=== PATIENT | male | born 1990 | race Caucasian/White ===

== ENCOUNTER → 2020-06-16 | Emergency (ER) | payer OTHER ==
--- NOTE | 2020-06-17 09:14 | EKG ---
[facility] [address] [facility] [place] [address] Signed Normal sinus rhythm with sinus arrhythmia Normal ECG No previous ECGs available Confirmed by BLAKE QUAN MD ([id number] on 06/17/2020 9:14:19 AM Electronically Signed By: BLAKE QUAN MD 06/17/2014 PATIENT NAME: SHELLY ASHLEY Electrocardiogram DATE OF : 89 PHYSICIAN: BLAKE QUAN MD REPORT #: [id number] REPORT IS CONFIDENTIAL AND NOT TO BE RELEASED WITHOUT AUTHORIZATION
== END ==
LOC: ED 07:18
DX: S02.2XXA Fracture of nasal bones, initial encounter for closed fracture (principal); S20.212A Contusion of left front wall of thorax, initial encounter; S00.83XA Contusion of other part of head, initial encounter; V53.5XXA Driver of pick-up truck or van injured in collision with car, pick-up truck or van in traffic accident, initial encounter
CPT/HCPCS: 70450; 71045; 71260; 72125; 80053; 82150; 82550; 83690; 85025; 86850; 86900; 86901; 93005; 93010; 99284-25; A9270; G0480; Q9967